=== PATIENT | male | born 1950 | race Caucasian/White ===

== ENCOUNTER 2017-11-22 15:03 | Day surgery (SDC) | payer OTHER ==
[2017-11-22] MEDS ORDERED: Lidocaine 2% Inj (20ml) ONE (16:07)
[2017-11-22] MEDS ORDERED: Adenosine 90 mg/30mL IV ONE (16:08)
[2017-11-22] MEDS ORDERED: Midazolam 2 MG/2 ML VIAL ONE ×3 (16:08→17:35)
[2017-11-22] MEDS ORDERED: Verapamil 2 ML ONE (16:08)
[2017-11-22] MEDS ORDERED: Nitroglycerin 50mg in D5W 50 MG/250 ML BOTTLE IV ONE (16:09)
[2017-11-22] MEDS ORDERED: Iodixanol 320 MG/ML 200 ML BOTTLE IV ONE (16:09)
[2017-11-22] MEDS ORDERED: Iohexol 350mgl/ml 50 ML ONE (16:09)
[2017-11-22] MEDS ORDERED: Oxycodone/Acetaminophen 5/325 mg Tab PO PRN (17:50)
[2017-11-22] MEDS ORDERED: Sodium Chloride 0.9% 1,000 ML IV SCH (18:00)
[2017-11-22 20:14] VITALS: TEMP 97.6
[2017-11-22 20:17] VITALS: PULSE 110
[2017-11-22 20:18] VITALS: BP 119/77; RESP 31
[2017-11-22] MEDS ORDERED: methIMAzole 5 MG TAB PO SCH (22:00)
--- NOTE | 2017-11-22 23:09 | CARDCATH ---
PROCEDURE DATE: 11/22/2017 INDICATIONS: Mr. Fernández is a 67-year-old male, who presented with symptoms of chest pain to [facility], underwent cardiac catheterization showing mid LAD, 75% occlusion. Patient was brought to [facility] for staged intervention of LAD. PROCEDURES PERFORMED: Left heart catheterization with selective coronary angiogram of the left coronary artery system. Percutaneous transluminal coronary angioplasty stenting of mid left anterior descending artery, deployment of 2.5 x 18 Sky drug eluting stent, lesion reduction from 75% to 80% down to 0%, BRITTANY-3 flow, 6-Kyrgyz right femoral arterial access, Angio-Seal closure device for hemostasis. TECHNIQUE OF PROCEDURE: After obtaining informed consent, the patient was brought to the cardiac cath suite in [facility]. After obtaining informed consent, using modified Seldinger technique, 6-Kyrgyz sheath was introduced into the right femoral artery. JL 3.5 guiding catheter was used to engage the left coronary system. Prowater wire was used to cross the distal LAD. Patient was pre-dilated with 2.0 x 16 balloon; subsequently stented with a 2.5 x 18 mm Sky drug-eluting stent, lesion reduction down to 0%, BRITTANY-3 flow. Final angiograms showed good BRITTANY-3 flow with lesion reduction down to 0%. IMPRESSION: Successful revascularization of mid left anterior descending artery 80% stenosis, deployment of 2.5 x 18 mm Sky drug-eluting stent. RECOMMENDATIONS: Keep the patient on Plavix with Xarelto. Patient can resume Xarelto for atrial fibrillation. Patient can be discharged home in 4 hours. Follow up with Dr. Hoskins in [place] office. Hugo Hoskins MD cc: Shaik Elizabeth MD
[2017-11-23] MEDS ORDERED: Non Formulary Medication (Empagliflozin [Jardiance] 10 MG) PO SCH (10:00)
[2017-11-23] MEDS ORDERED: Non Formulary Medication (Linagliptin [Tradjenta] 5 MG) PO SCH (10:00)
== END 2017-11-23 00:30 | disposition short-term general hospital (02) ==
LOC: CATH 15:03 → 2RNO 18:10 → MERGE 19:10 → CATH 11-23 00:30
PROVIDERS: ATTEND Internal Medicine Interventional Cardiology
DX: I25.10 Atherosclerotic heart disease of native coronary artery without angina pectoris (principal); I10 Essential (primary) hypertension; E78.5 Hyperlipidemia, unspecified; I48.91 Unspecified atrial fibrillation; E03.9 Hypothyroidism, unspecified; E11.9 Type 2 diabetes mellitus without complications; Z79.84 Long term (current) use of oral hypoglycemic drugs; Z79.01 Long term (current) use of anticoagulants; Z86.73 Personal history of transient ischemic attack (TIA), and cerebral infarction without residual deficits
CPT/HCPCS: 99152; 99153; C1725; C1760; C1769 ×2; C1874; C1887; C1894; C9600; J1644 ×2; J2250; J3010; J7040 ×2; Q9966; Q9967